=== PATIENT | male | born 1990 | race Two or more races ===

== ENCOUNTER 2017-10-19 21:14 | Emergency (ER) | payer BC, MEDICAID ==
[~2017-10-19] VITALS: Ht 180.3 cm; Wt 68.9 kg
[2017-10-19 21:16] VITALS: BP 101/51; Ht 180.3 cm; Wt 68.9 kg
== END 2017-10-19 23:00 | disposition home or self-care (01) ==
LOC: ED 21:14
DX: S01.81XA Laceration without foreign body of other part of head, initial encounter (principal); W54.0XXA Bitten by dog, initial encounter; Y93.89 Activity, other specified; Y92.89 Other specified places as the place of occurrence of the external cause; Y99.8 Other external cause status
CPT/HCPCS: J1885

== ENCOUNTER 2017-10-21 19:15 | Emergency (ER) | payer BC, MEDICAID ==
[~2017-10-21] VITALS: Ht 180.3 cm; Wt 69.8 kg
[2017-10-21 19:31] VITALS: Ht 180.3 cm; Wt 69.8 kg
[2017-10-21 20:47] VITALS: BP 130/66
== END 2017-10-21 20:47 | disposition home or self-care (01) ==
LOC: ED 19:15
DX: S01.81XD Laceration without foreign body of other part of head, subsequent encounter (principal); W54.0XXD Bitten by dog, subsequent encounter

== ENCOUNTER 2017-10-24 21:41 | Emergency (ER) | payer BC, MEDICAID ==
[~2017-10-24] VITALS: Ht 180.3 cm; Wt 68.5 kg
[2017-10-24 21:51] VITALS: Ht 180.3 cm; Wt 68.5 kg
[2017-10-24 22:22] VITALS: BP 118/69
== END 2017-10-24 22:22 | disposition home or self-care (01) ==
LOC: ED 21:41
DX: S01.81XD Laceration without foreign body of other part of head, subsequent encounter (principal); X58.XXXD Exposure to other specified factors, subsequent encounter

== ENCOUNTER 2017-12-26 14:08 | Emergency (ER) | payer BC, MEDICAID ==
[~2017-12-26] VITALS: Ht 175.3 cm; Wt 71.2 kg
[2017-12-26 14:15] VITALS: BP 123/56; Ht 175.3 cm; Wt 71.2 kg
== END 2017-12-26 14:46 | disposition home or self-care (01) ==
LOC: ED 14:08
DX: T23.022A Burn of unspecified degree of single left finger (nail) except thumb, initial encounter (principal); T79.9XXA Unspecified early complication of trauma, initial encounter